=== PATIENT | male | born 2005 | race Two or more races ===

== ENCOUNTER 2025-06-02 20:01 | Emergency (ER) | payer SELFPAY ==
[2025-06-02] MEDS ORDERED: Ibuprofen 800 MG TAB ONE (21:20)
== END 2025-06-02 21:34 | disposition home or self-care (01) ==
LOC: ERS 20:01
DX: H60.93 Unspecified otitis externa, bilateral (principal); H61.23 Impacted cerumen, bilateral
CPT/HCPCS: 69210; 99282